=== PATIENT | male | born 1970 | race Two or more races ===

== ENCOUNTER 2019-02-07 10:23 | Observation (INO) | payer SELFPAY ==
--- NOTE | 2019-02-07 10:30 | EDM.PDOC ---
ED HPI GENERAL MEDICAL PROBLEM - General Chief Complaint: Chest Pain Stated Complaint: SPOKE TO NURSE Time Seen by Provider: 02/07/19 10:27 - History of Present Illness INITIAL COMMENTS - FREE TEXT/NARRATIVE: HISTORY AND PHYSICAL: History of present illness: Patient's 48-year-old male with no past medical history presents concern of left-sided chest pain for 2 days his pain has been relatively constant patient states he's had some mild shortness of breath he denies diaphoresis nausea vomiting or palpitations he is a smoker. Drinks socially and denies any known cardiac history. Review of systems: As per history of present illness and below otherwise all systems reviewed and negative. Past medical history: As per history of present illness and as reviewed below otherwise noncontributory. Surgical history: As per history of present illness and as reviewed below otherwise noncontributory. Social history: No reported history of drug or alcohol abuse. Family history: As per history of present illness and as reviewed below otherwise noncontributory. Physical exam: HEENT: Atraumatic, normocephalic, pupils reactive, negative for conjunctival pallor or scleral icterus, mucous membranes moist, throat clear, neck supple, nontender, trachea midline. Lungs: Clear to auscultation, breath sounds equal bilaterally, chest nontender. Heart: S1S2, regular, negative for clicks, rubs, or JVD. Abdomen: Soft, nondistended, nontender. Negative for masses or hepatosplenomegaly. Negative for costovertebral tenderness. Pelvis: Stable nontender. Genitourinary: Deferred. Rectal: Deferred. Extremities: Atraumatic, negative for cords or calf pain. Neurovascular unremarkable. Neuro: Awake, alert, oriented. Cranial nerves II through XII unremarkable. Cerebellum unremarkable. Motor and sensory unremarkable throughout. Exam nonfocal. Diagnostics: CBC CMP troponin PT/INR chest x-ray EKG Therapeutics: IV O2 monitor aspirin 324 mg by mouth Impression: #1 chest pain Definitive disposition and diagnosis as appropriate pending reevaluation and review of above. - Related Data Allergies Allergy/AdvReac Type Severity Reaction Status Date / Time No Known Allergies Allergy Verified 02/07/19 10:33 Home Meds: Home Meds Aspirin [Ecotrin] 81 mg PO DAILY 02/07/19 [History] ED ROS GENERAL - Review of Systems Review Of Systems: ROS reveals no pertinent complaints other than HPI. ED EXAM, GENERAL - Physical Exam Exam: See Below (See dictation) Course - Vital Signs Last Recorded V/S: Last Vital Signs Temp 36.7 C 02/07/19 10:26 Pulse 55 L 02/07/19 10:26 Resp 18 02/07/19 10:26 BP 151/105 H 02/07/19 10:26 Pulse Ox 99 02/07/19 10:26 - Orders/Labs/Meds Orders: Active Orders 24 hr Category Date Time Status EKG Documentation Completion [RC] STAT Care 02/07/19 10:37 Active Labs: Laboratory Tests 02/07/19 02/07/19 02/07/19 Range/Units 10:30 10:30 10:30 WBC 7.35 (4.0-11.0) K/uL RBC 4.50 (4.50-5.90) M/uL Hgb 13.1 (13.0-17.0) g/dL Hct 39.7 (38.0-50.0) % MCV 88.2 (80.0-98.0) fL MCH 29.1 (27.0-32.0) pg MCHC 33.0 (31.0-37.0) g/dL RDW Std Deviation 43.9 (28.0-62.0) fl RDW Coeff of Chandra 14 (11.0-15.0) % Plt Count 221 (150-400) K/uL MPV 10.20 (7.40-12.00) fL Neut % (Auto) 64.5 (48.0-80.0) % Lymph % (Auto) 22.2 (16.0-40.0) % [place] % (Auto) 10.3 (0.0-15.0) % Eos % (Auto) 2.7 (0.0-7.0) % Baso % (Auto) 0.3 (0.0-1.5) % Neut # (Auto) 4.7 (1.4-5.7) K/uL Lymph # (Auto) 1.6 (0.6-2.4) K/uL [place] # (Auto) 0.8 (0.0-0.8) K/uL Eos # (Auto) 0.2 (0.0-0.7) K/uL Baso # (Auto) 0.0 (0.0-0.1) K/uL Nucleated RBC % 0.0 /100WBC Nucleated RBCs # 0 K/uL INR 1.01 Sodium 137 (136-148) mmol/L Potassium 4.1 (3.5-5.1) mmol/L Chloride 103 (98-107) mmol/L Carbon Dioxide 23.3 (21.0-32.0) mmol/L BUN 17 (7.0-18.0) mg/dL Creatinine 1.0 (0.8-1.3) mg/dL Est Cr Clr Drug Dosing TNP Estimated GFR (MDRD) > 60.0 ml/min Glucose 94 (74-106) mg/dL Calcium 9.4 (8.5-10.1) mg/dL Total Bilirubin 0.4 (0.2-1.0) mg/dL AST 29 (15-37) IU/L ALT 41 (14-63) IU/L Alkaline Phosphatase 88 (46-116) U/L Troponin I < 0.050 (0.000-0.056) ng/mL Total Protein 7.6 (6.4-8.2) g/dL Albumin 3.6 (3.4-5.0) g/dL Globulin 4.0 (2.6-4.0) g/dL Albumin/Globulin Ratio 0.9 (0.9-1.6) Meds: Medications Discontinued Medications Generic Name Dose Route Start Last Admin Trade Name Freq PRN Reason Stop Dose Admin Aspirin 162 mg 02/07/19 10:37 02/07/19 10:39 Aspirin PO 02/07/19 10:38 162 mg ONETIME ONE Administration Aspirin Confirm 02/07/19 10:36 Aspirin Administered 02/07/19 10:37 Dose 162 mg .ROUTE .STK-MED ONE Departure - Departure Time of Disposition: 11:27 Disposition: Refer to Observation Condition: Good Clinical Impression: Chest pain - Discharge Information Forms: ED Department Discharge - My Orders Last 24 Hours: My Active Orders 02/07/19 10:37 EKG Documentation Completion [RC] STAT - Assessment/Plan Last 24 Hours: My Active Orders 02/07/19 10:37 EKG Documentation Completion [RC] STAT
[2019-02-07] MEDS ORDERED: Aspirin 81 MG Tab.Chew ONE (10:36)
[2019-02-07] MEDS ORDERED: Aspirin 81 MG Tab.Chew PO ONE (10:37)
--- NOTE | 2019-02-07 11:07 | CR ---
EXAMINATION: Portable chest radiograph. HISTORY: Chest pain. FINDINGS: The trachea is midline. The cardiomediastinal silhouette is within normal limits. No pulmonary infiltrates, effusions or pneumothorax. Moderate hiatal hernia. Osseous structures appear unremarkable. IMPRESSION: No acute cardiopulmonary process.
[2019-02-07 11:20] LABS: CHLORIDE,CL 103 mmol/L (98-107); SODIUM,NA 137 mmol/L (136-148)
[2019-02-07] MEDS ORDERED: Nitroglycerin 2% Oint 1 GM UD Packet TOP ONE (11:33)
[2019-02-07] MEDS ORDERED: Ondansetron 4 MG/2 ML SDV IVPUSH ONE (11:34)
[2019-02-07] MEDS ORDERED: Morphine 2 MG/ML Syringe IVPUSH ONE (11:34)
[2019-02-07] MEDS ORDERED: Ondansetron 4 MG/2 ML SDV IVPUSH PRN (11:48)
[2019-02-07] MEDS ORDERED: Acetaminophen 325 MG Tab PO PRN (11:48)
[2019-02-07] MEDS ORDERED: Heparin Sodium 5,000 Units/ML Vial SUBCUT SCH (12:00)
--- NOTE | 2019-02-07 12:26 | PCM.HP ---
<Delmer Moreau - Last Filed: 02/07/19 12:16> H&P History of Present Illness - General Date of Service: 02/07/19 Admit Problem/Dx: Admission Diagnosis/Problem Admission Diagnosis/Problem Chest pain Source of Information: Patient History Limitations: Reports: No Limitations - History of Present Illness Initial Comments - Free Text/Narative: 48M hx of Tobacco abuse, presents w/ complaint of chest pain x2 days. Left sided, intermittent radiation to L arm. No nausea or vomiting. Says pain intensifies with breathing and pressing on his chest. ER work up negative for EKG/CXR/lab workup Left Chest Pain Score (Numeric/FACES): 8 - Related Data Allergies/Adverse Reactions: Allergies Allergy/AdvReac Type Severity Reaction Status Date / Time No Known Allergies Allergy Verified 02/07/19 10:33 Home Medications: Home Meds Aspirin [Ecotrin] 81 mg PO DAILY 02/07/19 [History] Past Medical History - Past Health History Medical/Surgical History: Denies Medical/Surgical History Social & Family History - Family History Family Medical History: Noncontributory - Recreational Drug Use Recreational Drug Use: No H&P Review of Systems - Review of Systems: Review Of Systems: ROS reveals no pertinent complaints other than HPI. Exam - Exam Exam: See Below - Vital Signs Vital Signs: Last Vital Signs Temp 36.7 C 02/07/19 10:26 Pulse 61 02/07/19 11:57 Resp 20 02/07/19 11:57 BP 136/92 H 02/07/19 11:57 Pulse Ox 97 02/07/19 11:57 - Exam General: Alert, Oriented, 4 HEENT: PERRLA, Hearing Intact, Mucosa Moist & Blair, Nares Patent, Normal Nasal Septum, Posterior Pharynx Clear, Conjunctiva Clear, EOMI, EACs Clear, TMs Clear Neck: Supple, Trachea Midline, 2 Lungs: Clear to Auscultation, Normal Respiratory Effort Cardiovascular: Regular Rate, Regular Rhythm GI/Abdominal Exam: Normal Bowel Sounds, Soft, Non-Tender, No Organomegaly, No Distention, No Abnormal Bruit, No Mass, Pelvis Stable Back Exam: Normal Inspection, Full Range of Motion, NT Extremities: Normal Inspection, Normal Range of Motion, Non-Tender, Normal Capillary Refill, Other (trace edema) Peripheral Pulses: 2+: Dorsalis Pedis (L), Dorsalis Pedis (R) Skin: Warm, Dry, Intact Neurological: Cranial Nerves Intact, Reflexes Equal Bilateral DTR: 2+: Achilles (L), Achilles (R) Psychiatric: Alert, Normal Affect, Normal Mood - Patient Data Lab Results Last 24 hrs: Laboratory Results - last 24 hr 02/07/19 02/07/19 02/07/19 Range/Units 10:30 10:30 10:30 WBC 7.35 (4.0-11.0) K/uL RBC 4.50 (4.50-5.90) M/uL Hgb 13.1 (13.0-17.0) g/dL Hct 39.7 (38.0-50.0) % MCV 88.2 (80.0-98.0) fL MCH 29.1 (27.0-32.0) pg MCHC 33.0 (31.0-37.0) g/dL RDW Std Deviation 43.9 (28.0-62.0) fl RDW Coeff of Chandra 14 (11.0-15.0) % Plt Count 221 (150-400) K/uL MPV 10.20 (7.40-12.00) fL Neut % (Auto) 64.5 (48.0-80.0) % Lymph % (Auto) 22.2 (16.0-40.0) % [place] % (Auto) 10.3 (0.0-15.0) % Eos % (Auto) 2.7 (0.0-7.0) % Baso % (Auto) 0.3 (0.0-1.5) % Neut # (Auto) 4.7 (1.4-5.7) K/uL Lymph # (Auto) 1.6 (0.6-2.4) K/uL [place] # (Auto) 0.8 (0.0-0.8) K/uL Eos # (Auto) 0.2 (0.0-0.7) K/uL Baso # (Auto) 0.0 (0.0-0.1) K/uL Nucleated RBC % 0.0 /100WBC Nucleated RBCs # 0 K/uL INR 1.01 Sodium 137 (136-148) mmol/L Potassium 4.1 (3.5-5.1) mmol/L Chloride 103 (98-107) mmol/L Carbon Dioxide 23.3 (21.0-32.0) mmol/L BUN 17 (7.0-18.0) mg/dL Creatinine 1.0 (0.8-1.3) mg/dL Est Cr Clr Drug Dosing TNP Estimated GFR (MDRD) > 60.0 ml/min Glucose 94 (74-106) mg/dL Calcium 9.4 (8.5-10.1) mg/dL Total Bilirubin 0.4 (0.2-1.0) mg/dL AST 29 (15-37) IU/L ALT 41 (14-63) IU/L Alkaline Phosphatase 88 (46-116) U/L Troponin I < 0.050 (0.000-0.056) ng/mL Total Protein 7.6 (6.4-8.2) g/dL Albumin 3.6 (3.4-5.0) g/dL Globulin 4.0 (2.6-4.0) g/dL Albumin/Globulin Ratio 0.9 (0.9-1.6) Result Diagrams: 02/07/19 10:30 02/07/19 10:30 Problem List Initiated/Reviewed/Updated: Yes Orders Last 24hrs: Active Orders 24 hr Category Date Time Status Patient Status [ADT] Stat ADT 02/07/19 11:28 Active Antiembolic Devices [RC] PER UNIT ROUTINE Care 02/07/19 11:49 Active Cardiac Monitoring [RC] CONTINUOUS Care 02/07/19 11:48 Active EKG Documentation Completion [RC] STAT Care 02/07/19 10:37 Active Oxygen Therapy [RC] PRN Care 02/07/19 11:48 Active Telemetry Monitoring [Cardiac Monitoring] [RC] . Care 02/07/19 12:05 Active DIRECTED Up ad Ana [RC] ASDIRECTED Care 02/07/19 11:48 Active VTE/DVT Education [RC] PER UNIT ROUTINE Care 02/07/19 11:48 Active Vital Signs [RC] Q4H Care 02/07/19 11:48 Active Heart Healthy Diet [DIET] Diet 02/07/19 Dinner Active BASIC METABOLIC PANEL,BMP [CHEM] AM Lab 02/08/19 05:11 Ordered LIPID PANEL [CHEM] AM Lab 02/08/19 05:11 Ordered TROPONIN I [CHEM] Q6H Lab 02/07/19 16:30 Ordered TROPONIN I [CHEM] Q6H Lab 02/07/19 22:30 Ordered Acetaminophen [Tylenol] Med 02/07/19 11:48 Active 650 mg PO Q4H PRN Heparin Sodium Med 02/07/19 12:00 Active 5,000 units SUBCUT Q8H Ondansetron [Zofran] Med 02/07/19 11:48 Active 4 mg IVPUSH Q4H PRN Sequential Compression Device [OM.PC] Per Unit Routine Oth 02/07/19 11:48 Ordered Medication Orders Acetaminophen (Tylenol) 650 mg PO Q4H PRN PRN Reason: Pain (Mild 1-3)/fever Heparin Sodium (Porcine) (Heparin Sodium) 5,000 units SUBCUT Q8H ALBERT Ondansetron HCl (Zofran) 4 mg IVPUSH Q4H PRN PRN Reason: Nausea Assessment/Plan Comment:: Assessment: #1. ACS rule out #2. Chest pain #3. Tobacco abuse #4. Costochondritis Plan: #1. Admit for observation. Vitals per floor. Cardiac tele #2. Troponin q6h x2 #3. Heparin for DVT prophylaxis #4. Cardiac diet #5. Lipid panel, BMP tomorrow AM #6. Arrange for stress test as outpt <Paolo Arzate - Last Filed: 02/07/19 12:37> H&P History of Present Illness - General Admit Problem/Dx: Admission Diagnosis/Problem Admission Diagnosis/Problem Chest pain I have seen and examined to patient independently of medical officer, Delmer Moreau MD. I have discussed the case for care of this patient with him. I have reviewed and approve of the plan of care as outlined by medical officer. Exam - Vital Signs Vital Signs: Last Vital Signs Temp 36.7 C 02/07/19 10:26 Pulse 56 L 02/07/19 12:32 Resp 18 02/07/19 12:32 BP 126/87 02/07/19 12:32 Pulse Ox 96 02/07/19 12:32 - Patient Data Lab Results Last 24 hrs: Laboratory Results - last 24 hr 02/07/19 02/07/19 02/07/19 Range/Units 10:30 10:30 10:30 WBC 7.35 (4.0-11.0) K/uL RBC 4.50 (4.50-5.90) M/uL Hgb 13.1 (13.0-17.0) g/dL Hct 39.7 (38.0-50.0) % MCV 88.2 (80.0-98.0) fL MCH 29.1 (27.0-32.0) pg MCHC 33.0 (31.0-37.0) g/dL RDW Std Deviation 43.9 (28.0-62.0) fl RDW Coeff of Chandra 14 (11.0-15.0) % Plt Count 221 (150-400) K/uL MPV 10.20 (7.40-12.00) fL Neut % (Auto) 64.5 (48.0-80.0) % Lymph % (Auto) 22.2 (16.0-40.0) % [place] % (Auto) 10.3 (0.0-15.0) % Eos % (Auto) 2.7 (0.0-7.0) % Baso % (Auto) 0.3 (0.0-1.5) % Neut # (Auto) 4.7 (1.4-5.7) K/uL Lymph # (Auto) 1.6 (0.6-2.4) K/uL [place] # (Auto) 0.8 (0.0-0.8) K/uL Eos # (Auto) 0.2 (0.0-0.7) K/uL Baso # (Auto) 0.0 (0.0-0.1) K/uL Nucleated RBC % 0.0 /100WBC Nucleated RBCs # 0 K/uL INR 1.01 Sodium 137 (136-148) mmol/L Potassium 4.1 (3.5-5.1) mmol/L Chloride 103 (98-107) mmol/L Carbon Dioxide 23.3 (21.0-32.0) mmol/L BUN 17 (7.0-18.0) mg/dL Creatinine 1.0 (0.8-1.3) mg/dL Est Cr Clr Drug Dosing TNP Estimated GFR (MDRD) > 60.0 ml/min Glucose 94 (74-106) mg/dL Calcium 9.4 (8.5-10.1) mg/dL Total Bilirubin 0.4 (0.2-1.0) mg/dL AST 29 (15-37) IU/L ALT 41 (14-63) IU/L Alkaline Phosphatase 88 (46-116) U/L Troponin I < 0.050 (0.000-0.056) ng/mL Total Protein 7.6 (6.4-8.2) g/dL Albumin 3.6 (3.4-5.0) g/dL Globulin 4.0 (2.6-4.0) g/dL Albumin/Globulin Ratio 0.9 (0.9-1.6) Result Diagrams: 02/07/19 10:30 02/07/19 10:30 Orders Last 24hrs: Active Orders 24 hr Category Date Time Status Patient Status [ADT] Stat ADT 02/07/19 11:28 Active Antiembolic Devices [RC] PER UNIT ROUTINE Care 02/07/19 11:49 Active Cardiac Monitoring [RC] CONTINUOUS Care 02/07/19 11:48 Active EKG Documentation Completion [RC] STAT Care 02/07/19 10:37 Active Oxygen Therapy [RC] PRN Care 02/07/19 11:48 Active Telemetry Monitoring [Cardiac Monitoring] [RC] . Care 02/07/19 12:05 Active DIRECTED Up ad Ana [RC] ASDIRECTED Care 02/07/19 11:48 Active VTE/DVT Education [RC] PER UNIT ROUTINE Care 02/07/19 11:48 Active Vital Signs [RC] Q4H Care 02/07/19 11:48 Active Heart Healthy Diet [DIET] Diet 02/07/19 Dinner Active BASIC METABOLIC PANEL,BMP [CHEM] AM Lab 02/08/19 05:11 Ordered LIPID PANEL [CHEM] AM Lab 02/08/19 05:11 Ordered TROPONIN I [CHEM] Q6H Lab 02/07/19 16:30 Ordered TROPONIN I [CHEM] Q6H Lab 02/07/19 22:30 Ordered Acetaminophen [Tylenol] Med 02/07/19 11:48 Active 650 mg PO Q4H PRN Heparin Sodium Med 02/07/19 12:00 Active 5,000 units SUBCUT Q8H Ondansetron [Zofran] Med 02/07/19 11:48 Active 4 mg IVPUSH Q4H PRN Sequential Compression Device [OM.PC] Per Unit Routine Oth 02/07/19 11:48 Ordered Medication Orders Acetaminophen (Tylenol) 650 mg PO Q4H PRN PRN Reason: Pain (Mild 1-3)/fever Heparin Sodium (Porcine) (Heparin Sodium) 5,000 units SUBCUT Q8H ALBERT Ondansetron HCl (Zofran) 4 mg IVPUSH Q4H PRN PRN Reason: Nausea
[2019-02-07] MEDS: Heparin Sodium 5,000 Units/ML Vial SUBCUT SCH ×2 (14:34→22:15)
[2019-02-07] MEDS ORDERED: LORazepam 2 MG/ML SDV IVPUSH PRN (15:50)
[2019-02-07] MEDS ORDERED: Thiamine 100 MG in Sodium Chloride 0.9% 100 ML IV ONE ×2 (16:00→17:00)
[2019-02-07] MEDS: Folic Acid 1 MG Tab PO SCH (16:46)
[2019-02-07] MEDS: oxyCODONE 5 MG Tab PO PRN (22:12)
[2019-02-08] MEDS: oxyCODONE 5 MG Tab PO PRN ×2 (04:17→10:59)
[2019-02-08 06:28] LABS: CHLORIDE,CL 104 mmol/L (98-107); SODIUM,NA 137 mmol/L (136-148)
[2019-02-08] MEDS: Heparin Sodium 5,000 Units/ML Vial SUBCUT SCH (06:34)
[2019-02-08] MEDS: Folic Acid 1 MG Tab PO SCH (08:28)
--- NOTE | 2019-02-08 08:47 | PCM.DCSUM1 ---
Discharge Summary - Hospital Course HPI Initial Comments: Admitted secondary to chest pain, left-sided to rule out ACS. Diagnosis: Stroke: No - Discharge Data Discharge Date: 02/08/19 Discharge Disposition: Home, Self-Care 01 Condition: Good - Patient Summary/Data Hospital Course: The patient is an otherwise healthy 48-year-old gentleman who had presented to the emergency department with a complaint of left-sided chest wall pain. The patient's pain was aggravated with movement. The patient also had the pain for approximately 3 days. He had some shortness of breath associated with this. He was admitted for observation to help rule out ACS. The patient also had reproducible chest wall pain upon palpation and it was thought that the patient' s pain was secondary to chest wall inflammation. The patient had been given a short course of tramadol 50 mg to take 1 tablet every 6 hours as needed for pain. The patient also has been strongly counseled with regards to smoking cessation. During hospitalization the patient was noted to have a normal CBC. An INR of 1.01. The patient also had a normal comprehensive metabolic panel. Further, the patient did have 3 troponins that were all undetectable. The patient had been tolerating his diet and he's been recommended to continue with her heart healthy diet as tolerated. He is also to have activity as tolerated. The patient has been hemodynamically stable and he has been discharged from acute hospitalization with recommendations listed above. - Patient Instructions Diet: Heart Healthy Diet Activity: As Tolerated - Discharge Plan *PRESCRIPTION DRUG MONITORING PROGRAM REVIEWED*: No *COPY OF PRESCRIPTION DRUG MONITORING REPORT IN PATIENT JOY: No Prescriptions/Med Rec: traMADol [Ultram] 50 mg PO Q6H PRN #20 tab PRN Reason: Pain (Moderate 4-6) Home Medications: Home Meds Aspirin [Ecotrin] 81 mg PO DAILY 02/07/19 [History] traMADol [Ultram] 50 mg PO Q6H PRN #20 tab 02/08/19 [Rx] Oxygen Therapy Mode: Room Air Patient Handouts: Tramadol tablets, Chest Wall Pain, [id number] Referrals: Delmer Moreau MD [Resident] - (Please call on Sunday and schedule a follow up appointment for 1-2 weeks.) - Discharge Summary/Plan Comment DC Time >30 min.: Yes - General Info Date of Service: 02/08/19 Admission Dx/Problem (Free Text: Admission Diagnosis/Problem Admission Diagnosis/Problem Chest pain Functional Status: Reports: Pain Controlled - Review of Systems General: Reports: No Symptoms HEENT: Reports: No Symptoms Pulmonary: Reports: No Symptoms Cardiovascular: Reports: No Symptoms Gastrointestinal: Reports: No Symptoms Genitourinary: Reports: No Symptoms Musculoskeletal: Reports: No Symptoms Skin: Reports: No Symptoms Neurological: Reports: No Symptoms Psychiatric: Reports: No Symptoms - Patient Data Vitals - Most Recent: Last Vital Signs Temp 36.6 C 02/08/19 08:04 Pulse 55 L 02/08/19 08:04 Resp 18 02/08/19 08:04 BP 120/78 02/08/19 08:04 Pulse Ox 98 02/08/19 08:04 Weight - Most Recent: 78.88 kg I&O - Last 24 hours: Intake & Output 02/07/19 02/08/19 02/08/19 22:59 06:59 14:59 Intake Total 521 600 Output Total 700 Balance -179 600 Lab Results - Last 24 hrs: Laboratory Results - last 24 hr 02/07/19 02/07/19 02/07/19 Range/Units 10:30 10:30 10:30 WBC 7.35 (4.0-11.0) K/uL RBC 4.50 (4.50-5.90) M/uL Hgb 13.1 (13.0-17.0) g/dL Hct 39.7 (38.0-50.0) % MCV 88.2 (80.0-98.0) fL MCH 29.1 (27.0-32.0) pg MCHC 33.0 (31.0-37.0) g/dL RDW Std Deviation 43.9 (28.0-62.0) fl RDW Coeff of Chandra 14 (11.0-15.0) % Plt Count 221 (150-400) K/uL MPV 10.20 (7.40-12.00) fL Neut % (Auto) 64.5 (48.0-80.0) % Lymph % (Auto) 22.2 (16.0-40.0) % [place] % (Auto) 10.3 (0.0-15.0) % Eos % (Auto) 2.7 (0.0-7.0) % Baso % (Auto) 0.3 (0.0-1.5) % Neut # (Auto) 4.7 (1.4-5.7) K/uL Lymph # (Auto) 1.6 (0.6-2.4) K/uL [place] # (Auto) 0.8 (0.0-0.8) K/uL Eos # (Auto) 0.2 (0.0-0.7) K/uL Baso # (Auto) 0.0 (0.0-0.1) K/uL Nucleated RBC % 0.0 /100WBC Nucleated RBCs # 0 K/uL INR 1.01 Sodium 137 (136-148) mmol/L Potassium 4.1 (3.5-5.1) mmol/L Chloride 103 (98-107) mmol/L Carbon Dioxide 23.3 (21.0-32.0) mmol/L BUN 17 (7.0-18.0) mg/dL Creatinine 1.0 (0.8-1.3) mg/dL Est Cr Clr Drug Dosing TNP Estimated GFR (MDRD) > 60.0 ml/min Glucose 94 (74-106) mg/dL Calcium 9.4 (8.5-10.1) mg/dL Total Bilirubin 0.4 (0.2-1.0) mg/dL AST 29 (15-37) IU/L ALT 41 (14-63) IU/L Alkaline Phosphatase 88 (46-116) U/L Troponin I < 0.050 (0.000-0.056) ng/mL Total Protein 7.6 (6.4-8.2) g/dL Albumin 3.6 (3.4-5.0) g/dL Globulin 4.0 (2.6-4.0) g/dL Albumin/Globulin Ratio 0.9 (0.9-1.6) Triglycerides (0-200) mg/dL Cholesterol (50-200) mg/dL LDL Cholesterol, Calc (60-180) mg/dL VLDL Cholesterol (5-55) mg/dL HDL Cholesterol (40-60) mg/dL Cholesterol/HDL Ratio (3.3-6.0) 02/07/19 02/07/19 02/08/19 Range/Units 16:20 22:17 05:27 WBC (4.0-11.0) K/uL RBC (4.50-5.90) M/uL Hgb (13.0-17.0) g/dL Hct (38.0-50.0) % MCV (80.0-98.0) fL MCH (27.0-32.0) pg MCHC (31.0-37.0) g/dL RDW Std Deviation (28.0-62.0) fl RDW Coeff of Chandra (11.0-15.0) % Plt Count (150-400) K/uL MPV (7.40-12.00) fL Neut % (Auto) (48.0-80.0) % Lymph % (Auto) (16.0-40.0) % [place] % (Auto) (0.0-15.0) % Eos % (Auto) (0.0-7.0) % Baso % (Auto) (0.0-1.5) % Neut # (Auto) (1.4-5.7) K/uL Lymph # (Auto) (0.6-2.4) K/uL [place] # (Auto) (0.0-0.8) K/uL Eos # (Auto) (0.0-0.7) K/uL Baso # (Auto) (0.0-0.1) K/uL Nucleated RBC % /100WBC Nucleated RBCs # K/uL INR Sodium 137 (136-148) mmol/L Potassium 4.1 (3.5-5.1) mmol/L Chloride 104 (98-107) mmol/L Carbon Dioxide 23.1 (21.0-32.0) mmol/L BUN 18 (7.0-18.0) mg/dL Creatinine 1.0 (0.8-1.3) mg/dL Est Cr Clr Drug Dosing 69.01 Estimated GFR (MDRD) > 60.0 ml/min Glucose 103 (74-106) mg/dL Calcium 8.8 (8.5-10.1) mg/dL Total Bilirubin (0.2-1.0) mg/dL AST (15-37) IU/L ALT (14-63) IU/L Alkaline Phosphatase (46-116) U/L Troponin I < 0.050 < 0.050 (0.000-0.056) ng/mL Total Protein (6.4-8.2) g/dL Albumin (3.4-5.0) g/dL Globulin (2.6-4.0) g/dL Albumin/Globulin Ratio (0.9-1.6) Triglycerides 153 (0-200) mg/dL Cholesterol 133 (50-200) mg/dL LDL Cholesterol, Calc 71 (60-180) mg/dL VLDL Cholesterol 30 (5-55) mg/dL HDL Cholesterol 31 L (40-60) mg/dL Cholesterol/HDL Ratio 4.3 (3.3-6.0) Med Orders - Current: Current Medications Acetaminophen (Tylenol) 650 mg PO Q4H PRN PRN Reason: Pain (Mild 1-3)/fever Last Admin: 02/07/19 17:53 Dose: 650 mg Folic Acid (Folic Acid) 1 mg PO DAILY [facility] Last Admin: 02/08/19 08:28 Dose: 1 mg Heparin Sodium (Porcine) (Heparin Sodium) 5,000 units SUBCUT Q8HR [facility] Last Admin: 02/08/19 06:34 Dose: 5,000 units Lorazepam (Ativan) 0 mg IVPUSH Q4H PRN; Protocol PRN Reason: Anxiety Ondansetron HCl (Zofran) 4 mg IVPUSH Q4H PRN PRN Reason: Nausea Oxycodone HCl (Oxycodone) 5 mg PO Q4H PRN PRN Reason: Pain Last Admin: 02/08/19 04:17 Dose: 5 mg Discontinued Medications Aspirin (Aspirin) 162 mg PO ONETIME ONE Stop: 02/07/19 10:38 Last Admin: 02/07/19 10:39 Dose: 162 mg Aspirin (Aspirin) Confirm Administered Dose 162 mg .ROUTE .STK-MED ONE Stop: 02/07/19 10:37 Last Admin: 02/07/19 11:33 Dose: Not Given Heparin Sodium (Porcine) (Heparin Sodium) 5,000 units SUBCUT Q8H [facility] Last Admin: 02/07/19 14:43 Dose: Not Given Thiamine HCl 100 mg/ Sodium (Chloride) 101 mls @ 202 mls/hr IV ONETIME ONE Stop: 02/07/19 16:29 Last Admin: 02/07/19 17:07 Dose: Not Given Thiamine HCl 100 mg/ Sodium (Chloride) 101 mls @ 202 mls/hr IV ONETIME ONE Stop: 02/07/19 17:29 Last Admin: 02/07/19 16:55 Dose: 202 mls/hr Morphine Sulfate (Morphine) 2 mg IVPUSH ONETIME ONE Stop: 02/07/19 11:35 Last Admin: 02/07/19 11:54 Dose: 2 mg Nitroglycerin (Nitro-Bid 2%) 1 gm TOP ONETIME ONE Stop: 02/07/19 11:34 Last Admin: 02/07/19 11:57 Dose: 1 gm Ondansetron HCl (Zofran) 4 mg IVPUSH ONETIME ONE Stop: 02/07/19 11:35 Last Admin: 02/07/19 11:52 Dose: 4 mg - Exam Quality Assessment: Denies: Supplemental Oxygen General: Reports: Alert, Oriented, Cooperative, No Acute Distress HEENT: Reports: Pupils Equal, Pupils Reactive Neck: Reports: Supple, Trachea Midline, No JVD Lungs: Reports: Clear to Auscultation, Normal Respiratory Effort Cardiovascular: Reports: Regular Rate, Regular Rhythm GI/Abdominal Exam: Normal Bowel Sounds, Soft, Non-Tender, No Distention Back Exam: Reports: Normal Inspection, Full Range of Motion Extremities: Normal Inspection, No Pedal Edema Skin: Reports: Warm, Dry, Intact Neurological: Reports: No New Focal Deficit Psy/Mental Status: Reports: Alert, Normal Affect, Normal Mood
== END 2019-02-08 11:30 | disposition home or self-care (01) ==
LOC: MW.ED 10:23 → MW.MS 12:24
PROVIDERS: ADMIT Internal Medicine; ATTEND Internal Medicine
DX: R07.89 Other chest pain (principal); M94.0 Chondrocostal junction syndrome [Tietze]; R06.02 Shortness of breath; F17.200 Nicotine dependence, unspecified, uncomplicated
CPT/HCPCS: 36415; 71045; 80048; 80053; 80061; 84484; 85025; 85610; 93005; 96365; 96372; 96375; 99285; A9270; G0378; J1644; J2270; J2405; J3411; J7030; 96374; 99283